=== PATIENT | female | born 1970 | race Two or more races ===

== ENCOUNTER → 2016-12-08 19:01 | Outpatient (CLI) | payer BC ==
[2015-12-09 05:36] VITALS: BMI 31.6
== END | disposition home or self-care (01) ==
LOC: D.MAMMO 11-09 13:45
DX: Z12.31 Encounter for screening mammogram for malignant neoplasm of breast (principal)

== ENCOUNTER → 2017-01-04 14:20 | Outpatient (CLI) | payer BC ==
[2015-12-09 05:36] VITALS: BMI 31.6
== END | disposition home or self-care (01) ==
LOC: D.MAMMO 11-09 13:45
DX: Z12.31 Encounter for screening mammogram for malignant neoplasm of breast (principal)

== ENCOUNTER → 2017-06-10 15:05 | Outpatient (CLI) | payer BC ==
[2015-12-09 05:36] VITALS: BMI 31.6
== END | disposition home or self-care (01) ==
LOC: D.CT 15:05
DX: R31.9 Hematuria, unspecified (principal)

== ENCOUNTER 2017-12-20 19:00 | Outpatient (CLI) | payer BC ==
[2015-12-09 05:36] VITALS: BMI 31.6
== END 2017-12-20 23:59 | disposition home or self-care (01) ==
LOC: D.MAMMO 19:00
DX: Z12.31 Encounter for screening mammogram for malignant neoplasm of breast (principal)

== ENCOUNTER 2018-02-24 05:35 | Day surgery (SDC) | payer BC ==
[2018-02-23 15:30] LABS: BASOPHILS 0.2 % (0-2); EOSINOPHILS 0.9 % (0-7); HEMATOCRIT 44.9 % (36.0-48.0); HEMOGLOBIN 15.3 g/dL (12-16); IMMATURE GRANULOCYTES 0.2 % (0-5); LYMPHOCYTES 28.8 % (15-50); MCH 29.5 pg (26.0-34.0); MCHC 34.1 g/dL (31.0-37.0); MCV 86.7 fL (80.0-100.0); MEAN PLATELET VOLUME 10.3 fL (7.4-10.4); MONOCYTES 6.3 % (2-11); NEUTROPHILS 63.6 % (40-80); RBC 5.18 10x6/uL (4.00-5.40); RDW 13.2 % (11.5-14.5); WBC 10.6 10x3/uL (4.8-10.8)
[2018-02-23 15:31] LABS: PLATELET COUNT 267 10x3/uL (130-400)
[~2018-02-24] VITALS: Ht 165.1 cm; Wt 79.4 kg
[~2018-02-24 05:35] MED LIST: BUSPAR 15 MG TA15 MG PO; PREMPRO
[2018-02-24 06:07] LABS: HCG URINE NEGATIVE (NEGATIVE)
[2018-02-24 06:15] VITALS: BP 126/89; BMI 29.1
[2018-02-24 06:21] VITALS: Ht 165.1 cm; Wt 79.4 kg
--- NOTE | 2018-02-28 14:35 | OP ---
PATIENT NAME: SEUN GANT MEDICAL RECORD: [id number] [facility] DATE: SURGEON: FABIANO RAZA MD DATE OF OPERATION: 02/24/2018 PREOPERATIVE DIAGNOSIS: High-grade cervical dysplasia. POSTOPERATIVE DIAGNOSIS: High-grade cervical dysplasia. PROCEDURE: Loop electrosurgical excision procedure. SURGEON: Fabiano Raza MD ANESTHESIA: General by LMA. INTRAVENOUS FLUIDS: Per anesthesia records. ESTIMATED BLOOD LOSS: Minimal. FINDINGS: Grossly normal appearing cervix. COMPLICATIONS: None apparent. SPECIMENS: Cervical cone biopsy. DESCRIPTION OF THE PROCEDURE: The patient was taken to the operating room where general anesthesia was achieved without difficulty. The patient was then prepped and draped in normal sterile fashion in dorsal lithotomy position in the [facility]. The patient was then prepped and draped and the bladder drained approximately 30 cc of clear yellow urine. At this point, an insulated speculum was placed into the vagina. Cervix was identified and a 2 x 1 cm loop electrode was used to remove a cervical cone biopsy at the transitional zone. No bleeding was noted from the cervical crater following removal of the specimen. The crater was then cauterized using the ball tip of the Bovie cautery. Monsel's solution was then placed on the cervix. The speculum was then removed. The patient was transferred to the postanesthesia recovery stable without incident. TRANSINT:[id number] Voice Confirmation ID: [id number] DOCUMENT ID: [id number] FABIANO RAZA MD at 1435 CC: [id number] DICTATION DATE: 02/26/18 0609 ORTHOTIST OR PROSTHETIST: 02/26/18 1111 [facility] 02/24/[address] [id number]
== END 2018-02-24 09:22 | disposition home or self-care (01) ==
LOC: D.OPS 05:35 → D.PAN 07:30 → D.OPS 07:30
PROVIDERS: Obstetrics & Gynecology
DX: D06.0 Carcinoma in situ of endocervix (principal); N72 Inflammatory disease of cervix uteri; Z01.812 Encounter for preprocedural laboratory examination